=== PATIENT | female | born 1990 | race Caucasian/White ===

== ENCOUNTER 2017-11-04 15:43 | Outpatient (CLI) | payer OTHER ==
[~2017-11-04 15:43] MED LIST: ALLEGRA60 MG PO; AMBIEN CR6.25 MG PO; BENADRYL50 MG PO; DICLEGIS DR 101 EACH PO; ENDOCET 5-3251 EACH PO; Feosol PO; IBUPROFEN800 MG PO; JUNEL FE 1/21 TABLET PO; JUNEL1 EAC1 PO; LEXAPRO20 MG PO; MACROBID100 MG PO; Motrin PO; NASACORT10.8 ML BOTH NARES; NOHOMEMEDS; NORCO 5/3251 TABLET PO; OXYCODONE HCL5 MG PO; PRENATAL MULTI1 EAC4 PO; PROMETHAZINE HC25 M1 PO; Percocet 5/325,Endoc PO; TYLENOL EXTRA500 MG PO; TYLENOL REGULA325 MG PO; ZOFRAN ODT4 MG PO; ZOFRAN4 MG PO; ZOLOFT25 MG PO; ~No Medications
[2017-11-04 16:00] VITALS: BP 118/62
[2017-11-04] MEDS ORDERED: PRENATAL GUMMI1 EACH PO (16:07)
[2017-11-04] MEDS ORDERED: LEXAPRO10 MG PO (16:07)
[2017-11-04] MEDS ORDERED: ZANTAC150 MG PO (16:08)
[2017-11-04] MEDS ORDERED: MACROBID100 MG PO (16:08)
[2017-11-04 18:05] LABS: APPEARANCE SL.HAZY ((CLEAR)); BILIRUBIN NEGATIVE; BLOOD NEGATIVE; COLOR YELLOW ((YELLOW)); GLUCOSE (STRIP) NEGATIVE; KETONES NEGATIVE; LEUKOCYTES NEGATIVE; NITRITE NEGATIVE; PROTEIN (STRIP) NEGATIVE; SPECIFIC GRAVITY 1.012 (1.000-1.030); UROBILINOGEN 0.2 MG/DL (0.2-1.0)
[2017-11-04 18:20] LABS: BACTERIA 2+ /HPF; EPITHELIAL CELLS RARE /HPF; MUCUS NONE SEEN /LPF; RED BLOOD CELLS 0-5 /HPF (0-5); UCUL ADDED? YES; WHITE BLOOD CELLS 0-5 /HPF (0-5)
[2017-11-04 20:02] VITALS: BP 108/53
== END 2017-11-04 20:05 | disposition home or self-care (01) ==
LOC: LDRP-OP 15:43 → 2WEST 15:44
PROVIDERS: Nurse Practitioner
DX: O99.89 Other specified diseases and conditions complicating pregnancy, childbirth and the puerperium (principal); M54.9 Dorsalgia, unspecified; R10.9 Unspecified abdominal pain; Z87.442 Personal history of urinary calculi; Z3A.23 23 weeks gestation of pregnancy
CPT/HCPCS: 76770; 81003; 87086; G0378

== ENCOUNTER 2017-11-27 14:27 | Outpatient (CLI) | payer OTHER ==
[2017-11-27 14:19] VITALS: BP 124/77
[~2017-11-27 14:27] MED LIST changes: +LEXAPRO10 MG PO; +PRENATAL GUMMI1 EACH PO; +ZANTAC150 MG PO
[2017-11-27 16:01] LABS: APPEARANCE CLEAR ((CLEAR)); BILIRUBIN NEGATIVE; BLOOD NEGATIVE; COLOR YELLOW ((YELLOW)); GLUCOSE (STRIP) NEGATIVE; KETONES NEGATIVE; LEUKOCYTES NEGATIVE; NITRITE NEGATIVE; PROTEIN (STRIP) NEGATIVE; SPECIFIC GRAVITY 1.016 (1.000-1.030); UCUL ADDED? NO; UROBILINOGEN 0.2 MG/DL (0.2-1.0)
== END 2017-11-27 17:10 | disposition home or self-care (01) ==
LOC: LDRP-OP → 2WEST 14:28 → LDRP-OP 03-28 20:34
PROVIDERS: Nurse Practitioner
DX: O26.892 Other specified pregnancy related conditions, second trimester (principal); O26.832 Pregnancy related renal disease, second trimester; R30.0 Dysuria; Z87.442 Personal history of urinary calculi; O99.342 Other mental disorders complicating pregnancy, second trimester; F41.9 Anxiety disorder, unspecified; O99.412 Diseases of the circulatory system complicating pregnancy, second trimester; I49.8 Other specified cardiac arrhythmias; Z3A.27 27 weeks gestation of pregnancy
CPT/HCPCS: 59025; 81003; 87086; G0378

== ENCOUNTER 2017-12-21 13:14 | Outpatient (CLI) | payer OTHER ==
[~2017-12-21] VITALS: Ht 160 cm; Wt 85.0 kg
[2017-12-21 14:43] LABS: HEMATOCRIT 31.9 % (36.0-46.0); HEMOGLOBIN 10.9 G/DL (11.9-15.5); MCH 30.9 PG (29.0-34.0); MCHC 34.2 G/DL (30.0-36.0); MCV 90.4 FL (83-99); PLATELET COUNT 156 K/uL (156-360); RBC DIS.WIDTH-CV 13.4 % (11.8-14.6); RBC DIS.WIDTH-SD 43.8 % (39-53); RED BLOOD COUNT 3.53 M/uL (3.80-5.20); WHITE BLOOD COUNT 10.8 K/uL (4.1-10.2)
[2017-12-21 14:55] LABS: ALBUMIN 3.6 g/dL (3.2-4.8); CHLORIDE 106 mEq/L (99-109); POTASSIUM 3.8 mEq/L (3.7-5.4); SODIUM 138 mEq/L (136-147)
[2017-12-21 14:58] LABS: GLUCOSE 85 mg/dL (70-99); TOTAL PROTEIN 6.9 g/dL (6.4-8.3)
[2017-12-21 14:59] LABS: TOTAL BILIRUBIN 0.4 mg/dL (0.0-1.0)
[2017-12-21 15:01] LABS: ALKALINE PHOSPHATASE 76 IU/L (3-129); CREATININE 0.6 mg/dL (0.6-1.3); GFR ESTIMATE (CALCULATED) > 59 mL/min/
[2017-12-21 15:02] LABS: UREA NITROGEN (BUN) 6 mg/dL (9-23)
[2017-12-21 15:03] LABS: AST (GOT) 16 IU/L (2-34)
[2017-12-21 15:04] LABS: ALT (GPT) 7 IU/L (3-49)
[2017-12-21 15:37] LABS: APPEARANCE CLEAR ((CLEAR)); BILIRUBIN NEGATIVE; BLOOD NEGATIVE; COLOR COLORLESS ((YELLOW)); GLUCOSE (STRIP) NEGATIVE; KETONES 5; LEUKOCYTES NEGATIVE; NITRITE NEGATIVE; PROTEIN (STRIP) NEGATIVE; SPECIFIC GRAVITY 1.003 (1.000-1.030); UROBILINOGEN 0.2 MG/DL (0.2-1.0)
[2017-12-21 16:32] VITALS: BP 119/61
[2017-12-21 17:42] VITALS: BP 117/59
== END 2017-12-21 19:10 | disposition home or self-care (01) ==
LOC: EME 13:14 → LDRP-OP 13:14 → EME 13:14 → 2WEST 16:18 → EDSTATUS 16:30 → 2WEST 19:10
PROVIDERS: Emergency Medicine
DX: O26.893 Other specified pregnancy related conditions, third trimester (principal); R55 Syncope and collapse; E16.2 Hypoglycemia, unspecified; O99.413 Diseases of the circulatory system complicating pregnancy, third trimester; I49.8 Other specified cardiac arrhythmias; O26.853 Spotting complicating pregnancy, third trimester; Z88.2 Allergy status to sulfonamides; Z3A.30 30 weeks gestation of pregnancy
CPT/HCPCS: 59025; 76805; 80053; 81003; 85027; 99281; 99284; G0378; J7120

== ENCOUNTER 2017-12-27 11:30 | Outpatient (CLI) | payer OTHER ==
[~2017-12-27] VITALS: Ht 160 cm; Wt 81.6 kg
[2017-12-27 11:53] VITALS: BP 113/56
[2017-12-27 12:16] LABS: BASOPHIL (%) 0.3 % (0-1); EOSINOPHIL (%) 2.6 % (0-5); EOSINOPHIL COUNT 0.3 K/uL (0-0.3); HEMATOCRIT 29.2 % (36.0-46.0); LYMPHOCYTE (%) 14.4 % (15-42); LYMPHOCYTE COUNT 1.6 K/uL (1.0-2.8); MCH 30.9 PG (29.0-34.0); MCHC 34.2 G/DL (30.0-36.0); MCV 90.1 FL (83-99); MONOCYTE (%) 8.2 % (3-12); MONOCYTE COUNT 0.9 K/uL (0-0.8); NEUTROPHIL (%) 73.5 % (45-76); NEUTROPHIL COUNT 8.2 K/uL (1.8-6.4); PLATELET COUNT 164 K/uL (156-360); RBC DIS.WIDTH-CV 13.7 % (11.8-14.6); RBC DIS.WIDTH-SD 43.9 % (39-53); RED BLOOD COUNT 3.24 M/uL (3.80-5.20); WHITE BLOOD COUNT 11.2 K/uL (4.1-10.2)
[2017-12-27 12:32] LABS: BILIRUBIN NEGATIVE; BLOOD NEGATIVE; COLOR YELLOW ((YELLOW)); GLUCOSE (STRIP) NEGATIVE; KETONES NEGATIVE; LEUKOCYTES NEGATIVE; NITRITE NEGATIVE; PROTEIN (STRIP) NEGATIVE; SPECIFIC GRAVITY 1.021 (1.000-1.030); UROBILINOGEN 0.2 MG/DL (0.2-1.0)
[2017-12-27 12:37] LABS: APPEARANCE CLEAR ((CLEAR)); UCUL ADDED? NO
[2017-12-27 15:50] VITALS: BP 110/58
[2017-12-27 16:24] VITALS: BP 139/69
[2017-12-27 16:31] VITALS: BP 117/57
== END 2017-12-27 17:40 | disposition home or self-care (01) ==
LOC: LDRP-OP → 2WEST 11:31 → LDRP-OP 03-28 17:48
PROVIDERS: Nurse Practitioner
DX: O60.03 Preterm labor without delivery, third trimester (principal); Z3A.31 31 weeks gestation of pregnancy; R10.9 Unspecified abdominal pain
CPT/HCPCS: 59025; 76770; 81003; 82731; 85025; 87086; G0378; J7120